=== PATIENT | female | born 2000 | race Caucasian/White ===

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

== ENCOUNTER 2020-01-30 22:11 | Emergency (ER) | payer OTHER ==
[~2020-01-30] VITALS: Ht 172.7 cm; Wt 90.9 kg
[2020-01-30] MEDS ORDERED: SUCR1TAB56 (22:18)
[2020-01-30] MEDS ORDERED: MISO200T56 (22:18)
[2020-01-30] MEDS ORDERED: NS 1,000 ML IV ONE (22:45)
[2020-01-30 22:47] LABS: BASO % 0.7 % (0.0-1.0); EOS # 0.1 10^3/uL (0.0-0.5); EOS % 1.6 % (0.0-3.0); HEMATOCRIT 37.4 % (36.0-47.0); LYMPH # 2.5 10^3/uL (1.5-5.0); LYMPH % 45.8 % (24.0-44.0); MEAN CORPUSCULAR HEMOGLOBIN 28.2 pg (27.0-33.0); MEAN CORPUSCULAR HGB CONC 32.1 g/dl (32.0-36.5); MEAN CORPUSCULAR VOLUME 87.8 fl (80.0-96.0); MONO # 0.4 10^3/uL (0.0-0.8); MONO % 6.8 % (0.0-5.0); NEUTROPHILS # 2.5 10^3/uL (1.5-8.5); NEUTROPHILS % 44.9 % (36.0-66.0); PLATELET COUNT, AUTOMATED 282 10^3/uL (150-450); RED BLOOD COUNT 4.26 10^6/uL (4.00-5.40); WHITE BLOOD COUNT 5.5 10^3/uL (4.0-10.0)
[2020-01-30] MEDS ORDERED: ISOVUE-370 76% 100ML VIAL As Ordered ONE (23:06)
[2020-01-30] MEDS ORDERED: ONDANSETRON 4MG/2ML VIAL IV ONE (23:15)
[2020-01-30] MEDS ORDERED: MORPHINE 4 MG/ML 1ML VIAL/SYRINGE (J2270) IV PRN (23:15)
[2020-01-30] MEDS ORDERED: GASTROGRAFIN SOLUTION 30ML PO SCH (23:15)
[2020-01-30 23:32] LABS: BLOOD UREA NITROGEN 10 MG/DL (7-18); CREATININE FOR GFR 0.72 MG/DL (0.55-1.30); GLUCOSE, FASTING 92 MG/DL (70-100); SODIUM LEVEL 142 MEQ/L (136-145)
[2020-01-30 23:33] LABS: ALBUMIN 3.6 GM/DL (3.2-5.2); ALT/SGPT 24 IU/L (0-32); BILIRUBIN,DIRECT 0.1 MG/DL (0.0-0.2); BILIRUBIN,TOTAL 0.4 MG/DL (0.2-1.0); CALCIUM LEVEL 8.6 MG/DL (8.5-10.1); CARBON DIOXIDE LEVEL 26 mmol/L (20-29); CHLORIDE LEVEL 110 MEQ/L (98-107); LIPASE 69 U/L (73-393); POTASSIUM SERUM 3.6 MEQ/L (3.5-5.1); TOTAL PROTEIN 6.5 GM/DL (6.4-8.2)
[2020-01-30 23:45] LABS: HCG, SERUM QUALITATIVE NEGATIVE (NEGATIVE)
--- NOTE | 2020-01-31 01:06 | REPVR ---
PROCEDURE INFORMATION: Exam: CT Abdomen And Pelvis With Contrast Exam date and time: 01/30/2020 10:38 PM Age: 19 years old Clinical indication: Abdominal pain; Generalized; Additional info: Abd pain , HX of gastric bypass, HX of perf TECHNIQUE: Imaging protocol: Computed tomography of the abdomen and pelvis with intravenous contrast. Radiation optimization: All CT scans at this facility use at least one of these dose optimization techniques: automated exposure control; mA and/or kV adjustment per patient size (includes targeted exams where dose is matched to clinical indication); or iterative reconstruction. Contrast material: ISO; Contrast volume: 100 ml; Contrast route: INTRAVENOUS (IV); COMPARISON: CT ABD/PEL W/IV ORAL CONTRAS 11/02/2019 9:20 AM FINDINGS: Liver: Normal. No mass. Gallbladder and bile ducts: Normal. No calcified stones. No ductal dilation. Pancreas: Normal. No ductal dilation. Spleen: Normal. No splenomegaly. Adrenal glands: Normal. No mass. Kidneys and ureters: Normal. No hydronephrosis. Stomach and bowel: Changes of previous gastric bypass surgery are noted. No bowel obstruction. No inflammatory changes in the GI tract. Colon is unremarkable. Appendix: No evidence of appendicitis. Intraperitoneal space: Trace free fluid in the pelvis. Vasculature: Unremarkable. No abdominal aortic aneurysm. Lymph nodes: Unremarkable. No enlarged lymph nodes. Urinary bladder: Unremarkable as visualized. Reproductive: Involuting physiologic cyst in the left ovary. Uterus and adnexa are otherwise unremarkable. Bones/joints: Scoliosis and changes of prior scoliosis surgery are noted. Soft tissues: Unremarkable. IMPRESSION: 1. No acute findings. 2. Changes of previous gastric bypass surgery without complication or obstruction. Electronically signed by: Jeramie Huitron On 01/31/2020 01:05:50 AM
[2020-01-31] MEDS ORDERED: KETOROLAC 30 MG/ML 1ML VIAL IV ONE (02:15)
[2020-01-31] MEDS ORDERED: ONDA4TAB6 PO (03:28)
[2020-01-31 03:44] VITALS: BP 123/74
== END 2020-01-31 03:50 | disposition home or self-care (01) ==
LOC: M ED 22:11
DX: R10.9 Unspecified abdominal pain (principal); Z98.84 Bariatric surgery status; Z79.899 Other long term (current) drug therapy; Z88.1 Allergy status to other antibiotic agents
CPT/HCPCS: 36415; 74177; 80048; 80076; 83690; 84703; 85025; 93041; 96374; 96375; 99285; J1885; J2270; J2405; Q9963; Q9967

== ENCOUNTER 2020-02-18 23:13 | Emergency (ER) | payer OTHER ==
[~2020-02-18] VITALS: Ht 172.7 cm; Wt 82.7 kg
[~2020-02-18 23:13] MED LIST changes: +MISO200T56; +ONDA4TAB6 PO; +SUCR1TAB56
[2020-02-18 23:14] VITALS: BP 119/69
[2020-02-19] MEDS ORDERED: ISOVUE-370 76% 100ML VIAL As Ordered ONE (02:22)
[2020-02-19] MEDS ORDERED: MORPHINE 2 MG/ML 1ML VIAL (J2270) IV PRN (02:30)
[2020-02-19] MEDS ORDERED: ONDANSETRON 4MG/2ML VIAL IV ONE (02:30)
[2020-02-19] MEDS ORDERED: NS 1,000 ML IV ONE (02:30)
[2020-02-19] MEDS ORDERED: diphenhydrAMINE 50MG/ML VIAL (J1200) IV ONE (02:30)
[2020-02-19 03:24] LABS: BASO # 0.1 10^3/uL (0.0-0.2); BASO % 0.6 % (0.0-1.0); EOS # 0.1 10^3/uL (0.0-0.5); EOS % 0.7 % (0.0-3.0); HEMATOCRIT 38.9 % (36.0-47.0); HEMOGLOBIN 12.4 g/dl (12.0-15.5); LYMPH # 4.1 10^3/uL (1.5-5.0); LYMPH % 41.3 % (24.0-44.0); MEAN CORPUSCULAR HEMOGLOBIN 28.2 pg (27.0-33.0); MEAN CORPUSCULAR HGB CONC 31.9 g/dl (32.0-36.5); MEAN CORPUSCULAR VOLUME 88.6 fl (80.0-96.0); MONO # 0.5 10^3/uL (0.0-0.8); MONO % 5.4 % (0.0-5.0); NEUTROPHILS # 5.1 10^3/uL (1.5-8.5); NEUTROPHILS % 51.8 % (36.0-66.0); PLATELET COUNT, AUTOMATED 282 10^3/uL (150-450); RED BLOOD COUNT 4.39 10^6/uL (4.00-5.40); WHITE BLOOD COUNT 9.9 10^3/uL (4.0-10.0)
[2020-02-19 03:52] LABS: ALBUMIN 3.7 GM/DL (3.2-5.2); ALT/SGPT 24 U/L (12-78); BILIRUBIN,DIRECT < 0.1 MG/DL (0.0-0.2); BILIRUBIN,TOTAL 0.4 MG/DL (0.2-1.0); BLOOD UREA NITROGEN 10 MG/DL (7-18); CALCIUM LEVEL 8.5 MG/DL (8.5-10.1); CARBON DIOXIDE LEVEL 21 MEQ/L (21-32); CHLORIDE LEVEL 113 MEQ/L (98-107); CREATININE FOR GFR 0.62 MG/DL (0.55-1.30); GLUCOSE, FASTING 84 MG/DL (70-100); HCG, SERUM QUANTITATIVE < 1.0 MIU/ML; LIPASE 53 U/L (73-393); POTASSIUM SERUM 4.2 MEQ/L (3.5-5.1); SODIUM LEVEL 141 MEQ/L (136-145); TOTAL PROTEIN 6.6 GM/DL (6.4-8.2)
--- NOTE | 2020-02-19 04:31 | REPVR ---
PROCEDURE INFORMATION: Exam: CT Abdomen And Pelvis With Contrast Exam date and time: 02/19/2020 2:16 AM Age: 19 years old Clinical indication: Abdominal pain; Localized; Lower; Additional info: Bilateral lower abdominal pain TECHNIQUE: Imaging protocol: Computed tomography of the abdomen and pelvis with intravenous contrast. Radiation optimization: All CT scans at this facility use at least one of these dose optimization techniques: automated exposure control; mA and/or kV adjustment per patient size (includes targeted exams where dose is matched to clinical indication); or iterative reconstruction. Contrast material: ISO; Contrast volume: 100 ml; Contrast route: INTRAVENOUS (IV); COMPARISON: CT ABD/PEL W/IV ORAL CONTRAS 01/31/2020 12:15 AM FINDINGS: Liver: Mild hepatomegaly. Gallbladder and bile ducts: Normal. No calcified stones. No ductal dilation. Pancreas: Normal. No ductal dilation. Spleen: Normal. No splenomegaly. Adrenal glands: Normal. No mass. Kidneys and ureters: Normal. No hydronephrosis. Stomach and bowel: Status post Chiquis-en-Y gastric bypass. Appendix: No evidence of appendicitis. Intraperitoneal space: Trace free fluid in the cul-de-sac. Vasculature: Unremarkable. No abdominal aortic aneurysm. Lymph nodes: Nonspecific mesenteric lymphadenopathy. Urinary bladder: Unremarkable as visualized. Reproductive: Suggestion of an involuting left ovarian corpus luteal cyst. Bones/joints: Levoscoliosis of the thoracolumbar spine. Spinal hardware in the thoracic spine. Soft tissues: Unremarkable. IMPRESSION: Suggestion of an involuting left ovarian corpus luteal cyst. Trace free fluid in the cul-de-sac. Status post Chiquis-en-Y gastric bypass. Electronically signed by: Mohit Evans On 02/19/2020 04:31:37 AM
[2020-02-19] MEDS ORDERED: KETOROLAC 30 MG/ML 1ML VIAL IV ONE (06:15)
[2020-02-19] MEDS ORDERED: PROM25TA12 PO (06:36)
== END 2020-02-19 06:59 | disposition home or self-care (01) ==
LOC: M ED 23:13
DX: R10.31 Right lower quadrant pain (principal); R10.32 Left lower quadrant pain; Z98.84 Bariatric surgery status; Z88.1 Allergy status to other antibiotic agents
CPT/HCPCS: 74177; 80047; 80048; 80076; 81001; 83605; 83690; 84702; 85025; 87086; 93041; 96361; 96374; 96375; 99284; J1200; J1885; J2270; J2405; Q9967

== ENCOUNTER 2020-03-22 19:43 | Emergency (ER) | payer OTHER ==
[~2020-03-22] VITALS: Ht 172.7 cm; Wt 90.3 kg
[~2020-03-22 19:43] MED LIST changes: +PROM25TA12 PO
[2020-03-22] MEDS ORDERED: ASPIRIN 81 MG CHEW TABLET PO ONE (22:00)
[2020-03-22 22:27] LABS: CK-MB VALUE MASS < 1.0 NG/ML (<3.6); CPK CREATINE PHOSPHOKINASE 46 U/L (26-192); MB/CK RELATIVE INDEX 2.17 (< OR =4); TROPONIN I < 0.02 NG/ML (< 0.10)
--- NOTE | 2020-03-22 22:45 | REPVR ---
PROCEDURE INFORMATION: Exam: XR Chest, 1 View Exam date and time: 03/22/20 (10:03pm) Age: 19 years old Clinical indication: Chest pain TECHNIQUE: Imaging protocol: Portable CXR Views: 1 view COMPARISON: Chest films of 11/02/19 FINDINGS: Lungs: Unremarkable. No consolidation. Pleural spaces: Unremarkable. No pleural effusions. No pneumothorax. Heart/Mediastinum: Unremarkable. No cardiomegaly. Bones/joints: S-shaped thoracolumbar scoliosis )unchanged). Dextroscoliosis of the lower thoracic spine. Thoracic spine hardware again seen (S/P vertebral body tethering procedure). Soft tissues: Bilateral nipple piercings. IMPRESSION: No acute findings. The lung henriquez remain clear. Electronically signed by: Lizzeth Mock On 03/22/2020 22:45:26 PM
[2020-03-22 23:01] LABS: BASO # 0.1 10^3/uL (0.0-0.2); BASO % 0.7 % (0.0-1.0); EOS # 0.1 10^3/uL (0.0-0.5); HEMATOCRIT 42.9 % (36.0-47.0); HEMOGLOBIN 13.6 g/dl (12.0-15.5); LYMPH # 3.7 10^3/uL (1.5-5.0); LYMPH % 44.6 % (24.0-44.0); MEAN CORPUSCULAR HEMOGLOBIN 27.9 pg (27.0-33.0); MEAN CORPUSCULAR HGB CONC 31.7 g/dl (32.0-36.5); MEAN CORPUSCULAR VOLUME 87.9 fl (80.0-96.0); MONO # 0.4 10^3/uL (0.0-0.8); MONO % 5.2 % (0.0-5.0); NEUTROPHILS % 48.3 % (36.0-66.0); PLATELET COUNT, AUTOMATED 318 10^3/uL (150-450); RED BLOOD COUNT 4.88 10^6/uL (4.00-5.40); WHITE BLOOD COUNT 8.2 10^3/uL (4.0-10.0)
[2020-03-22 23:05] LABS: INR 1.02; PROTHROMBIN TIME 13.6 SECONDS (12.5-14.3)
[2020-03-22 23:13] LABS: ALBUMIN 3.9 GM/DL (3.2-5.2); ALT/SGPT 27 U/L (12-78); BILIRUBIN,DIRECT < 0.1 MG/DL (0.0-0.2); BILIRUBIN,TOTAL 0.2 MG/DL (0.2-1.0); BLOOD UREA NITROGEN 11 MG/DL (7-18); CALCIUM LEVEL 8.7 MG/DL (8.5-10.1); CARBON DIOXIDE LEVEL 27 MEQ/L (21-32); CHLORIDE LEVEL 108 MEQ/L (98-107); CREATININE FOR GFR 0.65 MG/DL (0.55-1.30); GLUCOSE, FASTING 73 MG/DL (70-100); POTASSIUM SERUM 3.9 MEQ/L (3.5-5.1); SODIUM LEVEL 142 MEQ/L (136-145)
[2020-03-22 23:31] VITALS: BP 133/61
--- NOTE | 2020-03-23 08:57 | ECGEPIP ---
[facility] - ED Test Date: 2020-03-22 Pat Name: LALA SONG Department: Room: - Gender: Female Medical Claims Manager: : 2000 Requested By: BRITT Vallejo Order Number: [id number] Reading MD: Elizabeth Kenny Measurements Intervals [place] Rate: 69 P: 38 IN: 137 QRS: 21 QRSD: 93 T: 21 QT: 378 QTc: 407 Interpretive Statements SINUS RHYTHM WITH SINUS ARRHYTHMIA NONSPECIFIC T-WAVE ABNORMALITY NO PRIOR Electronically Signed on 03-23-2020 8:57:24 EST by Elizabeth Kenny
== END 2020-03-22 23:42 | disposition home or self-care (01) ==
LOC: M ED 19:43
DX: R07.89 Other chest pain (principal); E11.9 Type 2 diabetes mellitus without complications; J45.909 Unspecified asthma, uncomplicated; Z98.84 Bariatric surgery status; Z88.1 Allergy status to other antibiotic agents

== ENCOUNTER 2020-10-28 10:42 | Emergency (ER) | payer OTHER ==
[~2020-10-28] VITALS: Ht 172.7 cm; Wt 83.2 kg
[2020-10-28 10:42] VITALS: BP 131/79
[~2020-10-28 10:42] MED LIST changes: +OMEP40CA4 PO; -OMEP40CA97 PO
[2020-10-28] MEDS ORDERED: FLAG500T PO (15:11)
[2020-10-28] MEDS ORDERED: HYDR28CR33 TOP (15:11)
== END 2020-10-28 15:25 | disposition home or self-care (01) ==
LOC: M ED 10:42
DX: N76.0 Acute vaginitis (principal); E11.9 Type 2 diabetes mellitus without complications; K21.9 Gastro-esophageal reflux disease without esophagitis; F31.89 Other bipolar disorder; F90.9 Attention-deficit hyperactivity disorder, unspecified type; F98.8 Other specified behavioral and emotional disorders with onset usually occurring in childhood and adolescence; F42.9 Obsessive-compulsive disorder, unspecified; F91.3 Oppositional defiant disorder; Z98.84 Bariatric surgery status; Z88.1 Allergy status to other antibiotic agents

== ENCOUNTER → 2024-08-15 | Outpatient (RCR) ==
[~2024-08-15] MED LIST changes: +FLAG500T PO; +HYDR28CR52 TOP; -MISO200T56; +MISO200T83; +ONDA-282 PO; -ONDA4TAB6 PO
== END ==
LOC: M EMPSKH 07-30 13:23
PROVIDERS: ATTEND Family Medicine
DX: Z11.52 Encounter for screening for COVID-19 (principal)